=== PATIENT | male | born 1995 | race Asian ===

== ENCOUNTER 2021-09-29 19:48 | Emergency (ER) | payer OTHER, SELFPAY ==
--- NOTE | 2021-09-29 20:14 | ECG_ITS ---
Test Reason : OD Blood Pressure : / mmHG Vent. Rate : 069 BPM Atrial Rate : 069 BPM P-R Int : 142 ms QRS Dur : 084 ms QT Int : 378 ms P-R-T Axes : 078 072 033 degrees QTc Int : 405 ms Normal sinus rhythm with sinus arrhythmia Nonspecific T wave abnormality RSR' or QR pattern in V1 suggests right ventricular conduction delay Abnormal ECG No previous ECGs available Referred By: Armida Gery Electronically Signed By:TISH CHAPPELL MD
[2021-09-29 20:32] VITALS: BP 131/85; PULSE 76; RESP 20; TEMP 36.6; O2SAT 96; BMI 21.2
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
[2021-09-29 22:15] LABS: MANUAL DIFF FLAG NO
[2021-09-29 22:17] LABS: Basophils Percent Auto 0.5 % (0-2); Eosinophils Absolute Auto 0.1 X10*3/uL (0.0-0.4); Hematocrit 39.3 % (42.0-52.0); Hemoglobin 13.2 g/dl (14.0-18.0); Imm Gran Abs Auto 0.01 X10*3/uL (0.00-0.03); Imm Gran Pct Auto 0.2 % (0.0-0.4); Lymphocytes Absolute Auto 1.8 X10*3/uL (1.2-4.9); Lymphocytes Percent Auto 29.7 % (20-40); Mean Corpuscular HGB Conc 33.6 g/dl (31.0-36.0); Mean Corpuscular Hemoglobin 28.1 pg (27.0-33.0); Mean Corpuscular Volume 83.6 fL (80.0-98.0); Mean Platelet Volume 10.5 fL (9.4-12.4); Monocytes Absolute Auto 0.5 X10*3/uL (0.1-1.2); Monocytes Percent Auto 8.3 % (2-11); Neutrophils Absolute Auto 3.6 x10*3/uL (2.0-8.3); Neutrophils Percent Auto 59.3 % (45-73); Platelet Count 187 X10*3/uL (160-400); Red Cell Distribution Width 12.3 % (11.0-16.0); White Blood Count 6.1 X10*3/uL (4.8-10.8)
[2021-09-29 22:29] LABS: COVID-19 Test Negative (Negative)
[2021-09-29 22:30] LABS: Ethanol 123 mg/dL
[2021-09-29 22:34] LABS: Acetaminophen LAB 5 mcg/mL (<30); Alanine Aminotransferase 10 U/L (0-40); Albumin Level 4.5 g/dL (3.5-5.0); Alkaline Phosphatase 60 U/L (39-117); Anion Gap 15 (12-20); Aspartate Amino Transferase 18 U/L (5-37); Bilirubin Direct 0.3 mg/dL (0.0-0.5); Bilirubin Total 0.6 mg/dL (0.0-1.0); Blood Urea Nitrogen 19 mg/dL (9-16); Calcium 9.3 mg/dL (8.4-10.2); Carbon Dioxide 22 mmol/L (22-29); Chloride 110 mmol/L (96-108); Creatinine Clr Calc Pharmacy 102.8; Estimated Glomerular Filt Rate > 60; Glucose Random 81 mg/dL (60-115); Potassium 3.8 mmol/L (3.3-5.1); Salicylate < 5.0 mg/dL (15-30); Sodium 143 mmol/L (135-145); Total Protein 7.6 g/dL (6.5-8.0)
[2021-09-29 23:02] VITALS: BP 105/68; PULSE 71; RESP 13; TEMP 36.8; O2SAT 100
--- NOTE | 2021-09-29 23:19 | PC.NURSE ---
This RN spoke with Roseann at Poison Control who informs this RN that tylenol level and chemistry including AST and ALT need to be drawn at least 4 hours after ingestion. As time of ingestion is questionable per EMS/pt report, labs will be drawn at 4 hours since arrival to ED. This RN notified PUJA Huffman. Plan for repeat labs no sooner than midnight. If labs remain unchanged, pt medically cleared per poison control.
--- NOTE | 2021-09-29 23:26 | PC.NURSE ---
This RN contacted lab to change orders that were placed in error for now to midnight as indicated. This RN also asking for KIM results as those are still pending.
[2021-09-29 23:45] LABS: Amphetamine Screen Urine Not Detected (Not Detect); Barbiturates, Urine Not Detected (Not Detect); Benzodiazepines Screen Urine Not Detected (Not Detect); Cannabinoid Screen Urine POSITIVE (Not Detect); Cocaine Screen Urine Not Detected (Not Detect); Fentanyl, urine Not Detected (Not Detect); Opiate Screen Urine Not Detected (Not Detect); Phencyclidine Screen Urine Not Detected (Not Detect)
[2021-09-30 01:07] LABS: Acetaminophen LAB 3 mcg/mL (<30); Alanine Aminotransferase 10 U/L (0-40); Albumin Level 4.3 g/dL (3.5-5.0); Alkaline Phosphatase 57 U/L (39-117); Anion Gap 14 (12-20); Aspartate Amino Transferase 17 U/L (5-37); Bilirubin Total 0.6 mg/dL (0.0-1.0); Blood Urea Nitrogen 19 mg/dL (9-16); Calcium 9.3 mg/dL (8.4-10.2); Carbon Dioxide 22 mmol/L (22-29); Chloride 111 mmol/L (96-108); Creatinine Clr Calc Pharmacy 117.5; Estimated Glomerular Filt Rate > 60; Glucose Random 83 mg/dL (60-115); Potassium 3.7 mmol/L (3.3-5.1); Salicylate < 5.0 mg/dL (15-30); Sodium 143 mmol/L (135-145); Total Protein 7.3 g/dL (6.5-8.0)
[2021-09-30 01:38] VITALS: BP 113/92; PULSE 70; RESP 14; TEMP 36.7; O2SAT 100
--- NOTE | 2021-09-30 06:08 | PC.NURSE ---
Patient slept through the night, no distress observed/reported, patient was upset over having have to stay in POD he reported being in locked unit makes his depression even worse, but slept well, [facility] referral completed and confirmed, patient will be evaluated by the [facility] in the morning, per ER report patient was cleared by poison control, VSS, will continue to monitor.
== END 2021-09-30 08:14 | disposition home or self-care (01) ==
PROVIDERS: Nurse Practitioner Family; Emergency Provider Internal Medicine; PCP Family Medicine
DX: T39.311A Poisoning by propionic acid derivatives, accidental (unintentional), initial encounter (principal); Y92.9 Unspecified place or not applicable; Z79.899 Other long term (current) drug therapy; Z20.822 Contact with and (suspected) exposure to COVID-19
CPT/HCPCS: 36415; 80048; 80053; 80076; 80143; 80179; 80307; 82077; 85025; 87635; 93005; 99284

== ENCOUNTER 2022-12-23 12:02 | Outpatient (REF) | payer OTHER, SELFPAY ==
[2022-12-23 14:20] LABS: CT PCR NOT DETECTED (Not Detect.); NG PCR NOT DETECTED (Not Detect.)
== END 2022-12-23 12:03 | disposition home or self-care (01) ==
LOC: HO.LNP 12:02
PROVIDERS: Visit Provider Internal Medicine
DX: Z20.2 Contact with and (suspected) exposure to infections with a predominantly sexual mode of transmission (principal)
CPT/HCPCS: 0353U

== ENCOUNTER 2025-09-12 19:09 | Emergency (ER) | payer OTHER, SELFPAY ==
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
[2025-09-12 19:14] VITALS: BP 124/64; PULSE 141; RESP 20; TEMP 36.6; O2SAT 97; BMI 15.2
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
--- NOTE | 2025-09-12 19:18 | ECG_ITS ---
Test Reason : tachycadia Blood Pressure : */* mmHG Vent. Rate : 102 BPM Atrial Rate : 102 BPM P-R Int : 130 ms QRS Dur : 88 ms QT Int : 334 ms P-R-T Axes : 79 74 68 degrees QTcB Int : 435 ms Sinus tachycardia Possible Left atrial enlargement Nonspecific T wave abnormality Abnormal ECG When compared with ECG of 29-Sep-2021 20:33, No significant change was found Referred By: Ly Laguerre Electronically Signed By: Tay Clark
[2025-09-12 19:39] VITALS: BP 132/85; PULSE 99; RESP 16; TEMP 36.4; O2SAT 98
--- OUTSIDE RECORDS SUMMARY | 2025-09-12 19:41 | XMS_ITS | Clinical Summary ---
Author Organization [facility] Address [address] [place] [address] Phone Care Team Providers Care Consulting Technical Director Name Role Phone Unavailable Primary Care Provider Unavailabl e Immunizations Immunization Administration Dates Next Due DTaP 12/08/1997, 4,1993,05/07,1993 HPV, Quadrivalent 01/12/2013,12/23/2011 Hep B, ped/adol 12/08/1997, 7,10/07/1996,03/07,1993,1993 Hib (PRP-T) 07/08/1998, 3,1993,03/07 Influenza 08/14/2009 Influenza, injectable, trivalent 12/23/2011 Influenza, intranasal, trivalent 09/25/2010 MMR 12/08/1997,04/07/1994 Meningococcal Conj (Menactra) MCV4P 12/23/2011,0 04/30/2008 OPV 12/08/1997, 4,1993,03/07 Td (adult) (MBL), 2 Lf tetan us toxoid, PF, adsorbed 07/10/2004 Tdap 04/30/2008 Varicella 04/30/2008,10/09/2002 Family History Relation Name Status Comments Father Alive Father: heart a ttack before age 50 Father's Brother Paternal Un joan: leukemia Mother Alive Other 1 attention defic it hyperactivity disorder (ADHD) Other 2 leukemia Other 3 Alive Other 4 Alive heart attack be fore age 50 Social History Tobacco Use Types Packs/Day Years Used Date Smoking Tobacco: Never Assessed Sex and Gender Information Value Date Recorded Sex Assigned at Not on file Legal Sex Male 9:52 AM EST Gender Identity Not on file Sexual Orientation Not on file Last Filed Vital Signs Vital Sign Reading Time Taken Comments Blood Pressure 106/71 03/27/2013 12:00 AM EDT Pulse 80 03/27/2013 12:00 AM EDT Temperature 36.7 C (98 F) 01/12/2013 12:00 AM EST Respiratory Rate - - Oxygen Saturation - - Inhaled Oxygen Concentration - - Weight 45.4 kg (100 lb) 03/27/2013 12:00 AM EDT Height 174.6 cm (5' 8.75 ) 03/27/2013 12:00 AM E DT Body Mass Index 14.88 03/27/2013 12:00 AM EDT Plan of Treatment Health Maintenance Due Date Last Done Comments HPV Vaccines (3 - Male 3-dose series) 04/06/2013 01/12/2013, 12/23/2011 DTaP,Tdap,and Td Vaccines (7 - Td or Tdap) 04/30/2018 04/30/2008, 07/10/2004, 12/08/1997, Additional history exists Influenza Vaccines (#1) 2025 12/23/19 12, 09/25/2010, 08/14/2009 COVID-19 Vaccine ( season) 2025 Hepatitis B Vaccines Completed 12/08/1997, 06/07/1997, 10/07/1996, Additional history exists IPV Vaccines Completed 12/08/1997, 11/1993, 1993, Additional history exists MMR Vaccines Completed 12/08/1997, 04/07/1994 HIB Vaccines Aged Out 07/08/1998, 11/1992, 1993, Additional history exists No longer eligible based on patient's age to complete this topic Varicella Vaccines Completed 04/30/2008, 10/09/2002 Meningococcal Vaccine Completed 12/23/2011, 008 Hepatitis A Vaccines Aged Out No long er eligible based on patient's age to complete this topic Men B Vaccine Aged Out No longer elig ible based on patient's age to complete this topic Pneumococcal Vaccine Aged Out No long er eligible based on patient's age to complete this topic
--- OUTSIDE RECORDS SUMMARY | 2025-09-12 19:41 | XMS_ITS | Encounter Summary ---
Author Organization [facility] Address [address] [place] [address] Phone Care Team Providers Care Bench Assembler Electrical Name Role Phone Gonzalo Steele MD Primary Care Provider Encounter Details Date Type Department Care Team (Late st Contact Info) Description 06/15/2017 Conversion Encounter [facility] - [address], [address] [place] [address] Gonzalo Steele MD [address] [place] [id number] Social History Tobacco Use Types Packs/Day Years Used Date Smoking Tobacco: Never Assessed Sex and Gender Information Value Date Recorded Sex Assigned at Not on file Legal Sex Male 9:52 AM EST Gender Identity Not on file Sexual Orientation Not on file documented as of this encounter Plan of Treatment Not on file documented as of this encounter Visit Diagnoses Not on filedocumented in this encounter Care Teams Bench Assembler Electrical Relationship Specialty Start Date End Date Gonzalo Steele MD [address] [place] [address] PCP - General 12/28/16 05/17/21 documented as of this encounter
[2025-09-12 19:48] LABS: MANUAL DIFF FLAG NO
[2025-09-12 19:49] LABS: Hematocrit 39.0 % (42.0-52.0); Hemoglobin 13.2 g/dl (14.0-18.0); Imm Gran Abs Auto 0.01 X10*3/uL (0.00-0.03); Imm Gran Pct Auto 0.2 % (0.0-0.4); Lymphocytes Absolute Auto 1.6 X10*3/uL (1.2-4.9); Mean Corpuscular HGB Conc 33.8 g/dl (31.0-36.0); Mean Corpuscular Hemoglobin 28.0 pg (27.0-33.0); Mean Corpuscular Volume 82.6 fL (80.0-98.0); NRBC Abs Auto 0.000 X10*3/uL (0.0-0.012); NRBC Pct Auto 0.0 /100WBC (0.0-0.2); Platelet Count 249 X10*3/uL (160-400); Red Blood Count 4.72 X10*6/uL (4.60-5.80); White Blood Count 5.6 X10*3/uL (4.8-10.8)
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
[2025-09-12 20:09] LABS: Alanine Aminotransferase 47 U/L (0-40); Albumin Level 4.4 g/dL (3.5-5.0); Alkaline Phosphatase 90 U/L (39-117); Anion Gap 17 (12-20); Aspartate Amino Transferase 75 U/L (5-37); Blood Urea Nitrogen 13 mg/dL (9-16); Calcium 9.1 mg/dL (8.4-10.2); Carbon Dioxide 22 mmol/L (22-29); Chloride 109 mmol/L (96-108); Creatinine Clr Calc Pharmacy 72.5; Estimated Glomerular Filt Rate > 60; Lipase 36 U/L (8-78); Magnesium 2.3 mg/dL (1.6-2.6); Potassium 3.2 mmol/L (3.3-5.1); Sodium 145 mmol/L (135-145); Total Protein 8.0 g/dL (6.5-8.0)
--- NOTE | 2025-09-12 22:16 | PC.NURSE ---
provider into assess pt, pt requesting to go home, Iv removed, discuss plan of care, per provider pt okay to go home,
[2025-09-12 22:19] VITALS: BP 117/92; PULSE 107; RESP 20; TEMP 36.7; O2SAT 98
[2025-09-12 22:51] VITALS: BP 117/92; PULSE 107; RESP 20; TEMP 36.7; O2SAT 98
== END 2025-09-12 22:52 | disposition home or self-care (01) ==
PROVIDERS: Physician Assistant Medical; Emergency Provider Emergency Medicine
DX: S09.90XA Unspecified injury of head, initial encounter (principal); S60.419A Abrasion of unspecified finger, initial encounter; Y09 Assault by unspecified means; Y93.9 Activity, unspecified; Y92.9 Unspecified place or not applicable; Y99.9 Unspecified external cause status; F10.129 Alcohol abuse with intoxication, unspecified; Y90.8 Blood alcohol level of 240 mg/100 ml or more; R00.0 Tachycardia, unspecified; R51.9 Headache, unspecified
CPT/HCPCS: 36415; 70450; 80053; 80307; 83690; 83735; 85025; 93005; 99284

== ENCOUNTER → 2025-09-12 19:18 | Outpatient (BNV) | payer OTHER, SELFPAY | PROVIDERS: Emergency Provider Emergency Medicine; Visit Provider Internal Medicine Cardiovascular Disease | DX: R00.0 Tachycardia, unspecified (principal) | CPT/HCPCS: 93010 ==

== ENCOUNTER → 2025-09-12 19:18 | Outpatient (BNV) | payer OTHER, SELFPAY | PROVIDERS: Visit Provider Radiology Diagnostic Radiology | DX: S09.90XA Unspecified injury of head, initial encounter (principal) | CPT/HCPCS: 70450 ==